=== PATIENT | female | born 1985 | race Caucasian/White ===

== ENCOUNTER 2017-01-27 23:21 | Emergency (ER) | payer MEDICAID ==
[2017-01-27 23:57] LABS: ETHANOL SERUM 218 mg/dL (0-10)
--- NOTE | 2017-01-28 00:01 | EDPHY ---
H & P Smoking Status: Never smoked Time Seen by Provider: 01/27/17 23:22 HPI/ROS: CHIEF COMPLAINT: Suspected alcohol intoxication HISTORY OF PRESENT ILLNESS: 31-year-old female arrives via ambulance after she was found sleeping on her porch by her boyfriend, arousable, admitted to 10 cans of beer and marijuana use. No reports of trauma or assault or fall from height. On arrival patient denies complaints of pain or discomfort denies assault or fall. Denies seizure. Denies hallucination. REVIEW OF SYSTEMS: A ten point review of systems was performed and is negative with the exception of the items mentioned in the HPI PAST MEDICAL & SURGICAL HISTORY: No history of anticoagulant use SOCIAL HISTORY: Positive for alcohol use PHYSICAL EXAM (Prior to examination, patient consented to physical exam, hands were washed and my usual and customary physical exam procedures followed) 1) GENERAL: Well-developed, well-nourished, alert and oriented. Smells of alcohol. Agitated, yelling & cursing 2) HEAD: Normocephalic, atraumatic, no abrasion or laceration 3) HEENT: Pupils equal, round, reactive to light bilaterally. Sclera anicteric. No raccoon eyes no Avina sign. Nasopharynx, oropharynx, clear, no lesions rhinorrhea no otorrhea.. Ears bilaterally with normal tympanic membranes. 4) NECK: Cervical collar in place 5) LUNGS: Clear auscultation bilaterally, no wheezes, no rhonchi, no retractions. 6) HEART: Regular rate and rhythm, no murmur, no heave, no gallop. 7) ABDOMEN: No guarding, no rebound, no focal tenderness, 8) MUSCULOSKELETAL: No peripheral edema or discoloration. 9) BACK: no visual or palpable abnormality. 10) SKIN: No rash, no petechiae. DIFFERENTIAL DIAGNOSIS: In no particular order including but not limited to alcohol intoxication, drug use, head injury (Suhail,Chemo Yashira) Constitutional: Initial Vital Signs Temperature (C) 36.6 C 01/27/17 23:30 Heart Rate 52 L 01/27/17 23:30 Respiratory Rate 18 01/27/17 23:30 Blood Pressure 100/56 L 01/27/17 23:30 O2 Sat (%) 96 01/27/17 23:30 O2 Delivery Mode Room Air Allergies/Adverse Reactions: No Known Allergies Allergy (Verified 02/10/16 10:02) Home Medications: Medication Instructions Recorded Ibuprofen 600 mg PO Q8 PRN #30 tablet 02/10/16 Adderall 10 mg Tablet 01/27/17 MDM/Departure - [facility] ED Course/Re-evaluation: 12:01 a.m.: CT imaging has been ordered on the patient she initially consented to this. I spoke with patient while in the CT scanner , she became increasingly agitated, refused imaging, started yelling and cursing at me and insulting the staff. 1:30 am: Care turned over to Dr Ling at this time. Patient sobering and sleeping. (Chemo Jang) PHYSICIAN DOCUMENTATION: The patient was evaluated and managed by the Physician State Manager. My co- signature indicates that I have reviewed this chart and I agree with the findings and plan of care as documented. I am the secondary supervising physician. 3:15 a.m.- The patient has remained stable throughout my shift. She is more sober now. She is able to walk with a steady gait. She will be discharged home. (Carolina Ling) - Depart Disposition: Home, Routine, Self-Care Clinical Impression: Alcoholic intoxication Qualifiers: Complication of substance-induced condition: uncomplicated Qualified Code(s): F10.120 - Alcohol abuse with intoxication, uncomplicated Condition: Good Instructions: Alcohol Intoxication (ED) Referrals: Joao Simpson MD [Medical Doctor] - 01/29/17
[2017-01-28 02:50] VITALS: O2SAT 98
[2017-01-28 03:28] VITALS: BP 120/80; PULSE 72; RESP 16; TEMP 97.3
== END 2017-01-28 03:30 | disposition home or self-care (01) ==
LOC: EDUNIT#
DX: F10.120 Alcohol abuse with intoxication, uncomplicated (principal)
CPT/HCPCS: G0480

== ENCOUNTER 2017-08-13 13:05 | Emergency (ER) | payer MEDICAID ==
[2017-08-13 13:11] VITALS: BP 141/52; PULSE 81; RESP 18; O2SAT 96
--- NOTE | 2017-08-13 13:27 | EDPHY ---
H & P Stated Complaint: hit busch on stair Time Seen by Provider: 08/13/17 13:26 HPI/ROS: CHIEF COMPLAINT: Left leg injury HISTORY OF PRESENT ILLNESS: The patient presents the ED with complaints of a left leg injury. She was standing on a bucket and slipped off. She fell forward striking the anterior aspect of her left tib-fib area on the edge of the bucket. She sustained a superficial abrasions/skin tear. She has had some pain with ambulation since the fall. She denies any associated numbness or weakness. The patient denies additional injury. She did not strike her head or lose consciousness. REVIEW OF SYSTEMS: A comprehensive 10 point review of systems is otherwise negative aside from elements mentioned in the history of present illness. Source: Patient Exam Limitations: No limitations - Personal History Tetanus Vaccine Date: < 10 YEARS - Medical/Surgical History Hx Asthma: No Hx Chronic Respiratory Disease: No Hx Diabetes: No Hx Cardiac Disease: No Hx Renal Disease: No Hx Cirrhosis: No Hx Alcoholism: No Hx HIV/AIDS: No Hx Splenectomy or Spleen Trauma: No Other PMH: BLD CLOTTS IN BOTH ARMS TREATED WITH BLOOD THINNERS, CHOLECYSTECTOMY , "Tubes Tied", THC - Social History Smoking Status: Never smoked - Physical Exam Exam: General Appearance: Alert, no distress Respiratory: There are no retractions, lungs are clear to auscultation Cardiovascular: Regular rate and rhythm Gastrointestinal: Abdomen is soft and nontender, no masses, bowel sounds normal Neurological: Motor and sensory function intact to light touch in the left leg Skin: Superficial abrasion/skin tear noted to the left anterior busch Musculoskeletal: Tenderness to palpation along the left anterior tibia Constitutional: Initial Vital Signs Heart Rate 81 08/13/17 13:06 Respiratory Rate 18 08/13/17 13:06 Blood Pressure 141/52 H 08/13/17 13:06 O2 Sat (%) 96 08/13/17 13:06 O2 Delivery Mode Room Air Allergies/Adverse Reactions: No Known Allergies Allergy (Verified 02/10/16 10:02) Home Medications: Medication Instructions Recorded Ibuprofen 600 mg PO Q8 PRN #30 tablet 02/10/16 Adderall 10 mg Tablet 01/27/17 Medical Decision Making - Diagnostics Imaging Results: Imaging Impressions Tibia/Fibula X-Ray 08/13/17 13:31 Impression: Soft tissue laceration and swelling over the anterior pretibial space, with no acute osseous abnormality. ED Course/Re-evaluation: The patient presents to the ED with a superficial skin tear abrasion to her left busch after a mechanical fall. X-ray demonstrates no evidence of an obvious fracture. The patient's skin tear was treated with Steri-Strips and cleaned with normal saline. The patient tolerated the procedure well. She will be discharged home with customary aftercare instructions and return precautions. Differential Diagnosis: Differential diagnosis considered includes fracture, sprain, dislocation, laceration, abrasion Departure - Departure Disposition: Home, Routine, Self-Care Clinical Impression: Abrasion, left lower leg, initial encounter, Contusion of left leg Condition: Good Instructions: Contusion in Adults (ED) Additional Instructions: 1. Take Ibuprofen or Motrin 600 mg by mouth three times a day. 2. Apply antibiotic ointment to your abrasions twice daily for next week. Keep covered with dry dressing. Referrals: Cristiana Arguelles, [Primary Care Provider] - As per Instructions
[2017-08-13] MEDS ORDERED: LET GEL TOPICAL 1 EA SYR TP ONE (13:48)
== END 2017-08-13 14:56 | disposition home or self-care (01) ==
DX: S80.812A Abrasion, left lower leg, initial encounter (principal); S80.12XA Contusion of left lower leg, initial encounter; W01.198A Fall on same level from slipping, tripping and stumbling with subsequent striking against other object, initial encounter